=== PATIENT | female | born 2000 | race Caucasian/White ===

== ENCOUNTER 2025-01-01 22:36 | Emergency (ER) | payer BC ==
[~2025-01-01] VITALS: Ht 170.2 cm; Wt 81.6 kg
[2025-01-02] MEDS ORDERED: methylPREDNISolone SOD SUCC 125 MG/2ML VIAL ONE (00:08)
[2025-01-02] MEDS ORDERED: ONDANSETRON HCL/PF 4 MG/2 ML VIAL ONE (00:08)
[2025-01-02] MEDS ORDERED: EPINEPHRINE (1:1000) 1 MG/ML AMPUL ONE (00:08)
[2025-01-02] MEDS: EPINEPHRINE (1:1000) 1 MG/ML AMPUL SUBCUT ONE (00:30)
[2025-01-02] MEDS: IV NS 0.9% 1,000 ML IV ONE (00:30)
[2025-01-02] MEDS: ONDANSETRON HCL/PF 4 MG/2 ML VIAL IVP ONE (00:30)
[2025-01-02] MEDS: methylPREDNISolone SOD SUCC 125 MG/2ML VIAL IV ONE (00:30)
[2025-01-02 00:37] LABS: BASOPHILS % (AUTO) 0.3 % (0.0-2.0); EOSINOPHILS % (AUTO) 0.2 % (0.0-6.0); HEMATOCRIT 46 % (33-45); HEMOGLOBIN 15.8 g/dL (11.5-14.8); LYMPHOCYTES % (AUTO) 6.4 % (20.0-44.0); MEAN CORPUSCULAR HEMOGLOBIN 30 PG (26.0-33.0); MEAN CORPUSCULAR HGB CONC 34 g/dl (31.0-36.0); MEAN CORPUSCULAR VOLUME 87 fL (82-100); MONOCYTES # (AUTO) 0.5 K/uL (0.1-1.30); MONOCYTES % (AUTO) 3.6 % (2.0-12.0); NEUTROPHILS # (AUTO) 13.6 K/uL (1.8-8.9); NEUTROPHILS % (AUTO) 89.5 % (43.0-81.0); PLATELET COUNT (AUTO) 382 K/uL (150-450); RED BLOOD CELL COUNT(AUTO) 5.28 MIL/uL (4.0-5.2); RED CELL DISTRIBUTION WIDTH 13.6 % (11.5-15.0); WHITE BLOOD COUNT (AUTO) 15.2 K/uL (4.3-11.0)
[2025-01-02 00:44] LABS: CALCIUM, SERUM 10.1 mg/dL (8.5-10.1); CREATININE 0.9 mg/dL (0.6-1.3); POTASSIUM 3.7 mmol/L (3.5-5.1)
[2025-01-02 00:56] LABS: ABG BASE EXCESS -4.4 mmol/L (-2.0-3.0); ABG OXYGEN SATURATION 96.5 % (94.0-98.0); ABG PCO2 32.6 mmHg (32.0-45.0); ABG PH 7.392 (7.350-7.450); ABG PO2 86.7 mmHg (83.0-108.0); ABG TOTAL HEMOGLOBIN 15.6 G/dL (12.0-16.0); COHb 0.3 % (0.5-1.5); MetHb 0.5 % (0.0-1.5); O2Hb 95.7 % (94.0-97.0); SITE, ABG RIGHT BRACHIAL
[2025-01-02 01:00] VITALS: O2SAT 96
[2025-01-02] MEDS: ALBUTEROL FS 2.5 MG/3 ML VIAL.NEB CONTNEB ONE (01:00)
[2025-01-02] MEDS: IPRATROPIUM NEB FS 0.5 MG/2.5 ML AMPUL.NEB NEB ONE (01:00)
[2025-01-02] MEDS ORDERED: ALBUTEROL FS 2.5 MG/3 ML VIAL.NEB ONE (01:06)
[2025-01-02] MEDS ORDERED: IPRATROPIUM NEB FS 0.5 MG/2.5 ML AMPUL.NEB ONE (01:06)
[2025-01-02] MEDS ORDERED: ALBU8.5H8 INH (01:24)
[2025-01-02] MEDS ORDERED: PRED50TA PO (01:24)
[2025-01-02] MEDS ORDERED: ONDA4TAB5 PO (01:24)
[2025-01-02] MEDS ORDERED: AZIT250T PO (01:24)
[2025-01-02 02:00] VITALS: O2SAT 100
[2025-01-02 04:25] VITALS: BP 128/86; TEMP 98.6; O2SAT 98
== END 2025-01-02 03:54 | disposition home or self-care (01) ==
LOC: ER 22:39
DX: J40 Bronchitis, not specified as acute or chronic (principal); J11.1 Influenza due to unidentified influenza virus with other respiratory manifestations; F17.200 Nicotine dependence, unspecified, uncomplicated; Z20.822 Contact with and (suspected) exposure to COVID-19
CPT/HCPCS: 99285; 71045; 87426; 93005; 87804 ×2; 85025; 80048; 85378; 36415; 96374; 96375; 82803; 36600; 94644; 96372; J2919; J0171; J2405; J7030

== ENCOUNTER 2025-03-21 01:05 | Inpatient (IN) | payer BC ==
[~2025-03-21] VITALS: Ht 170.2 cm; Wt 83.5 kg
[~2025-03-21 01:05] MED LIST: ALBU8.5H8 INH; AZIT250T PO; ONDA4TAB5 PO; PRED50TA PO
[2025-03-21] MEDS ORDERED: VANCOMYCIN 500 MG VIAL ONE (02:35)
[2025-03-21] MEDS ORDERED: ONDANSETRON HCL/PF 4 MG/2 ML VIAL ONE (02:35)
[2025-03-21] MEDS ORDERED: VANCOMYCIN 1 GM /D5W 250 ML PB IV ONE (02:35)
[2025-03-21] MEDS ORDERED: MORPHINE SULFATE INJ 2 MG/ML DISP.SYRIN ONE (02:35)
[2025-03-21 02:36] LABS: PLATELET COUNT (AUTO) 349 K/uL (150-450); RED BLOOD CELL COUNT(AUTO) 4.75 MIL/uL (4.0-5.2); RED CELL DISTRIBUTION WIDTH 12.4 % (11.5-15.0); WHITE BLOOD COUNT (AUTO) 17.3 K/uL (4.3-11.0)
[2025-03-21] MEDS: MORPHINE SULFATE INJ 2 MG/ML DISP.SYRIN IV ONE (02:42)
[2025-03-21] MEDS: ONDANSETRON HCL/PF - ER 4 MG/2 ML VIAL IV ONE (02:42)
[2025-03-21] MEDS: VANCOMYCIN HCL 1.25 GM in IV D5W 260 ML IV ONE (02:42)
[2025-03-21] MEDS ORDERED: CT SWABBABLE VALVE TRANS SET 1 EA INFUS.SET MC ONE (02:46)
[2025-03-21] MEDS ORDERED: IOHEXOL-300 100 ML VIAL IV ONE (02:46)
[2025-03-21] MEDS ORDERED: IV NS 0.9% 250 ML IV ONE (02:46)
[2025-03-21 03:34] LABS: CALCIUM, SERUM 8.4 mg/dL (8.5-10.1); CREATININE 1.1 mg/dL (0.6-1.3); SODIUM SERUM 130.0 mmol/L (136-145); UREA NITROGEN, BLOOD 19.0 mg/dL (7-18)
[2025-03-21 03:39] LABS: ASPARTATE AMINOTRANSFERASE 7.0 U/L (15-37); TOTAL PROTEIN, SERUM 7.3 g/dL (6.4-8.2)
[2025-03-21 04:05] LABS: APPEARANCE,URINE CLEAR (CLEAR); BLOOD, URINE NEGATIVE Ery/uL (NEGATIVE); LEUKOCYTE ESTERASE ,URINE NEGATIVE (NEGATIVE); NITRITE, URINE NEGATIVE (NEGATIVE); UGLUCOSE NEGATIVE (NEGATIVE)
[2025-03-21] MEDS ORDERED: POTASSIUM CL. PREMIX PERIPHER. 100 ML ONE (04:06)
[2025-03-21] MEDS ORDERED: POTASSIUM CHLORIDE 20 MEQ TAB.PRT.SR PO ONE (04:06)
[2025-03-21 04:13] LABS: PREGNANCY TEST URINE QUAL NEGATIVE (NEGATIVE)
[2025-03-21] MEDS: POTASSIUM CHLORIDE 20 MEQ TAB.PRT.SR PO ONE ×2 (04:19→11:06)
[2025-03-21] MEDS: POTASSIUM CL. PREMIX PERIPHER. 50 ML IV SCH (04:19)
[2025-03-21] MEDS ORDERED: MAGNESIUM HYDROXIDE 30 ML UDC PO PRN (06:30)
[2025-03-21] MEDS ORDERED: MAG HYDROX/AL HYDROX/SIMETH 30 ML UDC PO PRN (06:30)
[2025-03-21] MEDS ORDERED: DOSING PER PHARMACY-VANCOMYCIN IV XX PRN (06:30)
[2025-03-21] MEDS ORDERED: Z GUARD REMEDY 4 OZ OINT TP PRN (06:30)
[2025-03-21] MEDS ORDERED: ZOLPIDEM TARTRATE 5 MG TABLET PO PRN (06:30)
[2025-03-21] MEDS ORDERED: ACETAMINOPHEN 325 MG TABLET ONE (07:07)
[2025-03-21] MEDS: ACETAMINOPHEN 325 MG TABLET PO PRN (07:11)
[2025-03-21 08:41] VITALS: BP 126/77; TEMP 98.2; O2SAT 100
[2025-03-21] MEDS ORDERED: HYDROCODONE/APAP 5/325MG TABLET PO PRN (10:00)
[2025-03-21] MEDS: IV NS 0.9% 1,000 ML IV PRN (11:04)
[2025-03-21] MEDS: LIDOCAINE 1%-EPI 1:100,000 20 ML VIAL TP ONE (11:27)
[2025-03-21 12:24] VITALS: BP 126/77; TEMP 98.2; O2SAT 100
[2025-03-21] MEDS: MORPHINE SULFATE INJ 4 MG/ML DISP.SYRIN IV PRN (14:03)
[2025-03-21] MEDS: VANCOMYCIN HCL 1.25 GM in IV D5W 250 ML IV SCH (15:09)
[2025-03-21 16:08] VITALS: BP 127/80; TEMP 99.3; O2SAT 95
[2025-03-21 20:00] VITALS: BP 129/69; TEMP 98.1; O2SAT 100
[2025-03-22 08:00] VITALS: BP 136/94; TEMP 98.2; O2SAT 98
[2025-03-22 08:12] LABS: PLATELET COUNT (AUTO) 281 K/uL (150-450); RED BLOOD CELL COUNT(AUTO) 3.98 MIL/uL (4.0-5.2); RED CELL DISTRIBUTION WIDTH 12.2 % (11.5-15.0); WHITE BLOOD COUNT (AUTO) 8.6 K/uL (4.3-11.0)
[2025-03-22 08:41] LABS: CALCIUM, SERUM 8.5 mg/dL (8.5-10.1); CREATININE 0.8 mg/dL (0.6-1.3); PHOSPHORUS 4.0 mg/dL (2.5-4.9); SODIUM SERUM 139.0 mmol/L (136-145); UREA NITROGEN, BLOOD 5.0 mg/dL (7-18)
[2025-03-22] MEDS: POTASSIUM CHLORIDE 20 MEQ TAB.PRT.SR PO SCH (10:54)
[2025-03-22] MEDS: ONDANSETRON HCL/PF 4 MG/2 ML VIAL IVP PRN (11:43)
[2025-03-22 20:00] VITALS: BP 122/74; TEMP 98.6; O2SAT 99
[2025-03-23 08:00] VITALS: BP 124/67; TEMP 98.2; O2SAT 100
[2025-03-23 08:03] LABS: CALCIUM, SERUM 9.3 mg/dL (8.5-10.1); CREATININE 0.7 mg/dL (0.6-1.3); PHOSPHORUS 3.6 mg/dL (2.5-4.9); SODIUM SERUM 139.0 mmol/L (136-145); UREA NITROGEN, BLOOD 8.0 mg/dL (7-18)
[2025-03-23] MEDS: AMOX/CLAVULANATE 875 MG TABLET PO SCH (08:11)
[2025-03-23] MEDS ORDERED: ACID1TAB12 PO (08:21)
[2025-03-23] MEDS ORDERED: AMOX-430 PO (08:21)
[2025-03-23] MEDS ORDERED: HYDR-3972 PO (08:26)
[2025-03-23] MEDS: POTASSIUM CHLORIDE 20 MEQ TAB.PRT.SR PO ONE (08:27)
[2025-03-23] MEDS: MUPIROCIN OINT 2% 22 GM TUBE NS SCH (14:49)
== END 2025-03-23 15:30 | disposition home or self-care (01) | DRG 603 ==
LOC: ER 01:07 → MED 06:20
PROVIDERS: ADMIT Nurse Practitioner Acute Care; ATTEND Nurse Practitioner Acute Care
PROC: 0J9J0ZZ Drainage of Right Hand Subcutaneous Tissue and Fascia, Open Approach (ICD-10-PCS; principal; 2025-03-21)
DX: L03.011 Cellulitis of right finger (principal); L02.511 Cutaneous abscess of right hand; E87.1 Hypo-osmolality and hyponatremia; M65.841 Other synovitis and tenosynovitis, right hand; Z79.51 Long term (current) use of inhaled steroids; Z79.899 Other long term (current) drug therapy; E80.6 Other disorders of bilirubin metabolism; E86.1 Hypovolemia; E87.6 Hypokalemia; F12.90 Cannabis use, unspecified, uncomplicated; W57.XXXA Bitten or stung by nonvenomous insect and other nonvenomous arthropods, initial encounter; Y92.9 Unspecified place or not applicable; Z83.3 Family history of diabetes mellitus; Z80.3 Family history of malignant neoplasm of breast
CPT/HCPCS: 36415; 73201-TC; 80048-TC; 80053-TC; 80202-TC; 83735-TC; 84100-TC; 84132-TC; 84703-TC; 85025-TC; 87040-TC; 87081-TC; A4223; A6407; G0378; J1200; J2270; J2405; J3370; J3480; J3490; J7030; J7040; J7050; J7060; Q9967

== ENCOUNTER 2025-09-16 12:18 | Emergency (ER) | payer BC ==
[~2025-09-16] VITALS: Ht 170.2 cm; Wt 79.4 kg
[~2025-09-16 12:18] MED LIST changes: +ACID1TAB12 PO; -ALBU8.5H8 INH; +AMOX-430 PO; -AZIT250T PO; +HYDR-3972 PO; -ONDA4TAB5 PO; -PRED50TA PO
[2025-09-16 12:25] VITALS: TEMP 98.6
[2025-09-16] MEDS ORDERED: PRED20TA PO (12:37)
[2025-09-16] MEDS ORDERED: ALBU18HF2 INH (12:37)
[2025-09-16] MEDS ORDERED: IPRATROPIUM NEB FS 0.5 MG/2.5 ML AMPUL.NEB ONE (12:42)
[2025-09-16] MEDS ORDERED: ALBUTEROL FS 2.5 MG/3 ML VIAL.NEB ONE (12:42)
[2025-09-16 12:47] VITALS: O2SAT 99
[2025-09-16] MEDS: ALBUTEROL FS 2.5 MG/3 ML VIAL.NEB NEB ONE (12:52)
[2025-09-16] MEDS: IPRATROPIUM NEB FS 0.5 MG/2.5 ML AMPUL.NEB NEB ONE (12:52)
[2025-09-16 13:05] VITALS: O2SAT 99
[2025-09-16 13:37] VITALS: BP 125/75; O2SAT 99
[2025-09-17] MEDS ORDERED: ALBU18HF2 INH (14:53)
[2025-09-17] MEDS ORDERED: PRED20TA PO (14:53)
== END 2025-09-16 13:25 | disposition home or self-care (01) ==
LOC: ER 12:21
DX: J45.909 Unspecified asthma, uncomplicated (principal); F17.200 Nicotine dependence, unspecified, uncomplicated; Z91.048 Other nonmedicinal substance allergy status
CPT/HCPCS: 99283; 94640; J7512